=== PATIENT | male | born 2000 | race Asian ===

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

== ENCOUNTER 2021-01-10 16:23 | Inpatient (IN) | payer OTHER ==
[2021-01-10 19:32] VITALS: BMI 17.4
[2021-01-10] MEDS ORDERED: Ondansetron PF 4 MG/2 ML Vial IVP PRN (20:13)
[2021-01-10] MEDS ORDERED: Acetaminophen 325 MG TAB PO PRN (20:13)
[2021-01-10] MEDS ORDERED: Ondansetron ODT 4 MG TAB PO PRN (20:13)
[2021-01-10 20:36] LABS: Hemoglobin 8.3 g/dL (14.0-18.0); Mean Corpuscular HGB CONC 34.3 g/dL (32.0-36.0); Mean Corpuscular Volume 87.6 fL (78.0-98.0); Mean Platelet Volume 6.5 fL (7.4-10.4); Platelet Count 71 thou/uL (130-400); RBC Distribution Width 11.9 % (11.5-14.5); Red Blood Cell (RBC) Count 2.77 mill/uL (4.00-5.20)
[2021-01-10 21:07] LABS: Nucleated RBC 0 % (0); Platelet Morphology Comment Appears Decreased; Reflex for Review?? YES; White Blood Cell (WBC) Count 0.4 thou/uL (4.8-10.8)
[2021-01-10] MEDS: MEROPENEM 1 GM/50 ML 1 GM in Premix Bag 1 BAG IVPB SCH (22:05)
[2021-01-11] MEDS: Vancomycin 1 GM in Premix Bag 1 BAG IVPB SCH ×2 (02:48→14:46)
[2021-01-11] MEDS ORDERED: Vancomycin HCl 1.5 GM in Sodium Chloride 0.9% 250 ML 300 ML IVPB SCH (03:00)
[2021-01-11] MEDS ORDERED: Dexamethasone 10 MG/ML VIAL SLOW IVP SCH (04:00)
[2021-01-11] MEDS: Dexamethasone Sod Phosphate 40 MG in Sodium Chloride 0.9% 50 ML IVPB SCH (04:09)
[2021-01-11 04:19] LABS: Hemoglobin 8.4 g/dL (14.0-18.0); Mean Corpuscular HGB CONC 33.5 g/dL (32.0-36.0); Mean Corpuscular Hemoglobin 29.3 pg (25.0-35.0); Mean Corpuscular Volume 87.4 fL (78.0-98.0); Mean Platelet Volume 7.1 fL (7.4-10.4); Platelet Count 64 thou/uL (130-400); RBC Distribution Width 11.9 % (11.5-14.5); Red Blood Cell (RBC) Count 2.88 mill/uL (4.00-5.20); White Blood Cell (WBC) Count 0.9 thou/uL (4.8-10.8)
[2021-01-11 04:36] LABS: Anion Gap 15 mmol/L (10-20); BUN (Urea Nitrogen) 10 mg/dL (8.9-20.6); Calc. Creatinine Clearance 112 mL/min (70-130); Calcium 9.4 mg/dL (7.8-10.44); Carbon Dioxide 22 mmol/L (22-29); Chloride 107 mmol/L (98-107); Glucose 177 mg/dL (70-105); Potassium 4.1 mmol/L (3.5-5.1); Sodium 140 mmol/L (136-145)
[2021-01-11 04:45] LABS: Lymphocytes 94 % (28-48); MDiff Complete? YES; Metamyelocyte 1 % (0-0); Neutrophil 5 % (31-61); Platelet Morphology Comment Appears Decreased
[2021-01-11] MEDS: MEROPENEM 1 GM/50 ML 1 GM in Premix Bag 1 BAG IVPB SCH ×3 (06:17→21:58)
[2021-01-11 10:55] LABS: MONO NEGATIVE CONTROL ZONE White (Negative) (White); Mononucleosis NEGATIVE (NEGATIVE)
[2021-01-11 10:56] LABS: MONO POSITIVE CONTROL Pink Line (Positive) (PINK/RED)
[2021-01-12] MEDS: Vancomycin 1 GM in Premix Bag 1 BAG IVPB SCH ×3 (03:05→22:02)
[2021-01-12] MEDS: Dexamethasone Sod Phosphate 40 MG in Sodium Chloride 0.9% 50 ML IVPB SCH (05:10)
[2021-01-12] MEDS: MEROPENEM 1 GM/50 ML 1 GM in Premix Bag 1 BAG IVPB SCH ×3 (06:00→21:28)
[2021-01-12 07:51] LABS: Hemoglobin 8.2 g/dL (14.0-18.0); Mean Corpuscular HGB CONC 33.5 g/dL (32.0-36.0); Mean Corpuscular Hemoglobin 29.1 pg (25.0-35.0); Platelet Count 52 thou/uL (130-400)
[2021-01-12 08:38] LABS: Lymphocytes 88 % (28-48); MDiff Complete? YES; Mean Platelet Volume 6.8 fL (7.4-10.4); Monocytes 6 % (0-4); Neutrophil 6 % (31-61); Platelet Morphology Comment Appears Decreased; White Blood Cell (WBC) Count 0.9 thou/uL (4.8-10.8)
[2021-01-12 12:13] LABS: EBV VCA IgM <36.0 U/mL (0.0-35.9); Nuclear AG IgG (EBNA) AB 28.9 U/mL (0.0-17.9)
[2021-01-12 14:33] LABS: Vancomycin, Trough 5.1 ug/mL
[2021-01-13] MEDS ORDERED: Mag-Al 1200 mg/1200 mg/30 ML UDCUP PO PRN (00:19)
[2021-01-13] MEDS: Dexamethasone Sod Phosphate 40 MG in Sodium Chloride 0.9% 50 ML IVPB SCH (04:28)
[2021-01-13] MEDS: MEROPENEM 1 GM/50 ML 1 GM in Premix Bag 1 BAG IVPB SCH ×3 (05:57→21:27)
[2021-01-13] MEDS: Vancomycin 1 GM in Premix Bag 1 BAG IVPB SCH ×3 (06:00→22:07)
[2021-01-13 07:42] LABS: Hemoglobin 7.6 g/dL (14.0-18.0); Mean Corpuscular HGB CONC 33.8 g/dL (32.0-36.0); Mean Corpuscular Hemoglobin 29.5 pg (25.0-35.0); Mean Corpuscular Volume 87.3 fL (78.0-98.0); Mean Platelet Volume 6.7 fL (7.4-10.4); Platelet Count 36 thou/uL (130-400); Red Blood Cell (RBC) Count 2.56 mill/uL (4.00-5.20); White Blood Cell (WBC) Count 0.9 thou/uL (4.8-10.8)
[2021-01-13 09:37] LABS: Lymphocytes 80 % (28-48); MDiff Complete? YES; Monocytes 4 % (0-4); Neutrophil 16 % (31-61); Platelet Morphology Comment Appears Decreased; Polychromasia SLIGHT = 2-3 cells (100X) (0-2/hpf)
[2021-01-13 14:36] LABS: Vancomycin, Trough 14.4 ug/mL
[2021-01-13] MEDS ORDERED: TBO-Filgrastim 300 MCG/0.5 ML VIAL SC SCH (14:45)
[2021-01-14] MEDS: Dexamethasone Sod Phosphate 40 MG in Sodium Chloride 0.9% 50 ML IVPB SCH (04:05)
[2021-01-14] MEDS: MEROPENEM 1 GM/50 ML 1 GM in Premix Bag 1 BAG IVPB SCH ×3 (05:35→22:41)
[2021-01-14] MEDS: Vancomycin 1 GM in Premix Bag 1 BAG IVPB SCH ×2 (06:11→15:35)
[2021-01-14 07:48] LABS: Hemoglobin 8.4 g/dL (14.0-18.0); Mean Corpuscular HGB CONC 33.7 g/dL (32.0-36.0); Mean Corpuscular Hemoglobin 29.3 pg (25.0-35.0); Mean Corpuscular Volume 87.1 fL (78.0-98.0); Mean Platelet Volume 8.1 fL (7.4-10.4); Platelet Count 32 thou/uL (130-400); RBC Distribution Width 11.9 % (11.5-14.5); Red Blood Cell (RBC) Count 2.85 mill/uL (4.00-5.20); White Blood Cell (WBC) Count 1.6 thou/uL (4.8-10.8)
[2021-01-14 08:45] LABS: Band 2 % (5-11); Lymphocytes 93 % (28-48); MDiff Complete? YES; Neutrophil 5 % (31-61); Platelet Morphology Comment Appears Decreased; RBC Morphology Normal
[2021-01-14 14:52] LABS: Vancomycin, Trough 11.5 ug/mL
[2021-01-14] MEDS: VANCOMYCIN 1.25 GM/250 ML BAG 1.25 GM in Premix Bag 1 BAG IVPB SCH ×2 (15:59→23:25)
[2021-01-14] MEDS ORDERED: TBO-Filgrastim 300 MCG/0.5 ML VIAL SC SCH (17:00)
[2021-01-15] MEDS: MEROPENEM 1 GM/50 ML 1 GM in Premix Bag 1 BAG IVPB SCH (06:30)
[2021-01-15 07:54] LABS: Critical Call w/ Read Back HHP.KN @753
[2021-01-15 07:55] LABS: Mean Corpuscular HGB CONC 34.4 g/dL (32.0-36.0); Mean Corpuscular Hemoglobin 29.8 pg (25.0-35.0); Mean Corpuscular Volume 86.6 fL (78.0-98.0); Mean Platelet Volume 8.4 fL (7.4-10.4); Platelet Count 21 thou/uL (130-400); RBC Distribution Width 11.8 % (11.5-14.5); White Blood Cell (WBC) Count 1.8 thou/uL (4.8-10.8)
[2021-01-15 08:15] LABS: Band 3 % (5-11); Lymphocytes 85 % (28-48); MDiff Complete? YES; Monocytes 6 % (0-4); Neutrophil 3 % (31-61); Platelet Morphology Comment Appears Decreased; Polychromasia SLIGHT = 2-3 cells (100X) (0-2/hpf); Reactive Lymphocytes 3 % (0-10)
[2021-01-15] MEDS: VANCOMYCIN 1.25 GM/250 ML BAG 1.25 GM in Premix Bag 1 BAG IVPB SCH (09:33)
[2021-01-15 10:17] VITALS: BP 130/67; TEMP 98.8
[2021-01-15] MEDS ORDERED: Vancomycin HCl 1.25 GM in Sodium Chloride 0.9% 250 ML 250 ML IVPB SCH (16:00)
[2021-01-15 16:16] LABS: Vancomycin, Trough 17.5 ug/mL
== END 2021-01-15 17:35 | disposition home or self-care (01) | DRG 809 ==
LOC: ONC 17:20
PROVIDERS: ADMIT Internal Medicine; ATTEND Internal Medicine
PROC: 30233R1 Transfusion of Nonautologous Platelets into Peripheral Vein, Percutaneous Approach (ICD-10-PCS; principal; 2021-01-10)
DX: D61.811 Other drug-induced pancytopenia (principal); K51.90 Ulcerative colitis, unspecified, without complications; D69.3 Immune thrombocytopenic purpura; T45.1X5A Adverse effect of antineoplastic and immunosuppressive drugs, initial encounter; Z82.61 Family history of arthritis; Z88.1 Allergy status to other antibiotic agents; Z79.899 Other long term (current) drug therapy; Z80.0 Family history of malignant neoplasm of digestive organs
CPT/HCPCS: 36415; 71045; 80048; 80202; 85025; 86308; 86664; 86665; J1447; J2185; J3370

== ENCOUNTER 2021-01-16 13:04 | Day surgery (SDC) | payer OTHER ==
[2021-01-16] MEDS ORDERED: Sodium Chloride 0.9% 20 ML ONE (13:50)
[2021-01-16] MEDS ORDERED: diphenhydrAMINE 25 MG CAP PO SCH (14:00)
[2021-01-16] MEDS ORDERED: Acetaminophen 500 MG TAB PO SCH (14:00)
[2021-01-16 15:40] VITALS: BP 125/67; TEMP 98.5
== END 2021-01-16 15:41 | disposition home or self-care (01) ==
LOC: MERGE 13:04 → ONC/OP 13:04
PROVIDERS: ATTEND Internal Medicine Hematology & Oncology
PROC: 30233R1 Transfusion of Nonautologous Platelets into Peripheral Vein, Percutaneous Approach (ICD-10-PCS; principal; 2021-01-16)
DX: D69.6 Thrombocytopenia, unspecified (principal); D64.9 Anemia, unspecified; Z88.1 Allergy status to other antibiotic agents
CPT/HCPCS: 36415; 36430; 86850; 86900; 86901; P9035; Q0163

== ENCOUNTER 2021-01-21 07:52 | Day surgery (SDC) | payer OTHER ==
[2021-01-21] MEDS ORDERED: Acetaminophen 500 MG TAB PO SCH (08:15)
[2021-01-21] MEDS ORDERED: diphenhydrAMINE 25 MG CAP PO SCH (08:15)
[2021-01-21] MEDS ORDERED: Sodium Chloride 0.9% 20 ML ONE (08:41)
[2021-01-21 09:41] VITALS: BP 138/71; TEMP 98.6
== END 2021-01-21 14:39 | disposition home or self-care (01) ==
LOC: ONC/OP 07:52
PROVIDERS: ATTEND Internal Medicine Hematology & Oncology
PROC: 30233N1 Transfusion of Nonautologous Red Blood Cells into Peripheral Vein, Percutaneous Approach (ICD-10-PCS; principal; 2021-01-21)
DX: D64.9 Anemia, unspecified (principal); D69.6 Thrombocytopenia, unspecified; Z88.1 Allergy status to other antibiotic agents
CPT/HCPCS: 36430; 86850; 86900; 86901; P9016; Q0163

== ENCOUNTER 2021-01-30 08:31 | Day surgery (SDC) | payer OTHER ==
[2021-01-27 14:20] VITALS: BMI 18.8
[2021-01-30 09:40] VITALS: BP 140/97; TEMP 98
== END 2021-01-30 12:30 | disposition home or self-care (01) ==
LOC: CT 08:31 → MERGE 10:00 → CT 12:30
PROVIDERS: ATTEND Internal Medicine Hematology & Oncology
DX: D64.9 Anemia, unspecified (principal); D69.6 Thrombocytopenia, unspecified; I10 Essential (primary) hypertension; Z88.1 Allergy status to other antibiotic agents
CPT/HCPCS: 20225; 77012; 85097; 88184; 88237; 88305; 88311; 88313